=== PATIENT | female | born 1975 | race Caucasian/White ===

== ENCOUNTER 2020-02-15 23:59 | Emergency (ER) | payer BC ==
[~2020-02-15] VITALS: Ht 165.1 cm; Wt 99.8 kg
[~2020-02-15 23:59] MED LIST: AUGMENTIN 875-1 EACH PO; MECLIZINE HCL25 MG PO; METHYLPREDNISOLO4 M1 PO; NORCO 5-325 TA1 EACH PO; ZITHROMAX250 MG PO
== END 2020-02-16 01:19 | disposition home or self-care (01) ==
LOC: ED 23:59
DX: H18.822 Corneal disorder due to contact lens, left eye (principal); E78.5 Hyperlipidemia, unspecified; Z88.8 Allergy status to other drugs, medicaments and biological substances
CPT/HCPCS: 99283

== ENCOUNTER 2020-11-04 20:59 | Emergency (ER) | payer BC ==
[~2020-11-04] VITALS: Ht 165.1 cm; Wt 110.0 kg
--- NOTE | 2020-11-04 22:51 | EKG ---
[facility] [address] [facility] [place], [place] [address] Signed Sinus tachycardia Otherwise normal ECG When compared with ECG of 01-SEP-2017 16:18, No significant change was found Confirmed by TERESO GUNTER MD ([id number]) on 11/04/2020 10:51:28 PM Electronically Signed By: TERESO GUNTER MD 11/04/20 2251 PATIENT NAME: MARYURI HARGROVE BENITO Electrocardiogram DATE OF : 77 PHYSICIAN: TERESO GUNTER MD REPORT #: [id number] REPORT IS CONFIDENTIAL AND NOT TO BE RELEASED WITHOUT AUTHORIZATION
[2020-11-04] MEDS ORDERED: CARDIZEM CD120 MG PO (23:50)
--- NOTE | 2020-11-05 07:49 | EKG ---
[facility] [address] [place] [address] Signed Sinus tachycardia with premature atrial complexes Otherwise normal ECG When compared with ECG of 04-NOV-2020 21:08, (Unconfirmed) premature atrial complexes are now present Confirmed by TERESO GUNTER MD ([id number]) on 11/05/2020 7:49:21 AM Electronically Signed By: TERESO GUNTER MD 11/05/20 0749 PATIENT NAME: MARYURI HARGROVE Electrocardiogram DATE OF : 77 PHYSICIAN: TERESO GUNTER MD REPORT #: [id number] REPORT IS CONFIDENTIAL AND NOT TO BE RELEASED WITHOUT AUTHORIZATION
== END 2020-11-05 00:10 | disposition home or self-care (01) ==
LOC: ED 20:59
DX: I49.9 Cardiac arrhythmia, unspecified (principal); I10 Essential (primary) hypertension; E78.5 Hyperlipidemia, unspecified; Z88.8 Allergy status to other drugs, medicaments and biological substances
CPT/HCPCS: 71045; 80053; 81001; 83735; 84484; 85025; 93005; 93010; 96374; 99284-25; J7030

== ENCOUNTER 2021-02-02 01:27 | Emergency (ER) | payer BC ==
[~2021-02-02] VITALS: Ht 165.1 cm; Wt 110.0 kg
[~2021-02-02 01:27] MED LIST changes: +CARDIZEM CD120 MG PO
--- NOTE | 2021-02-03 07:10 | EKG ---
[facility] [address] [facility] [place], [place] [address] Signed Sinus tachycardia Otherwise normal ECG When compared with ECG of 04-NOV-2020 21:32, premature atrial complexes are no longer present Confirmed by TERESO GUNTER MD ([id number]) on 02/03/2021 7:09:58 AM Electronically Signed By: TERESO GUNTER MD 02/03/21 0710 PATIENT NAME: MARYURI HARGROVE BENITO Electrocardiogram DATE OF : 77 PHYSICIAN: TERESO GUNTER MD REPORT #: [id number] REPORT IS CONFIDENTIAL AND NOT TO BE RELEASED WITHOUT AUTHORIZATION
== END 2021-02-02 03:43 | disposition home or self-care (01) ==
LOC: ED 01:27
DX: R07.9 Chest pain, unspecified (principal); E78.5 Hyperlipidemia, unspecified; Z88.8 Allergy status to other drugs, medicaments and biological substances
CPT/HCPCS: 71045; 80053; 83735; 84484; 85025; 85379; 93005; 93010; 96372; 99285-25; J1650; J7121

== ENCOUNTER 2021-02-10 22:18 | Emergency (ER) | payer BC ==
[~2021-02-10] VITALS: Ht 165.1 cm; Wt 110.0 kg
--- OUTSIDE RECORDS SUMMARY | 2021-02-10 22:26 | XMS ---
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 Liz has no Care Guidelines for this patient. Carrie VISIT COUNT (12 MO.) 4 [facility] TOTAL 4 NOTE: Visits indicate total known visits. ED/C VISIT TRACKING (12 MO.) [facility] COMPLAINT: - SOB,CHEST PAIN 02/02/2021 01:27 [facility] [place] TYPE: Emergency COMPLAINT: - CHEST PAIN DIAGNOSES: - Hyperlipidemia, unspecified - Allergy status to other drugs, medicaments and biological substances - Chest pain, unspecified 11/04/2020 21:00 [facility] [place] TYPE: Emergency COMPLAINT: - IRREGULAR HEART BEAT DIAGNOSES: - Essential (primary) hypertension - Essential (primary) hypertension - Cardiac arrhythmia, unspecified - Cardiac arrhythmia, unspecified - Allergy status to other drugs, medicaments and biological substances - Hyperlipidemia, unspecified 02/16/2020 00:00 [facility] [place] TYPE: Emergency COMPLAINT: - EYE PAIN,RUNNY NOSE DIAGNOSES: - Hyperlipidemia, unspecified - Corneal disorder due to contact lens, left eye - Ocular pain, left eye - Allergy status to other drugs, medicaments and biological substances INPATIENT VISIT TRACKING (12 MO.) No inpatient visits to display in this time frame [email or web address]
[2021-02-10] MEDS ORDERED: HYDROXYZINE HCL25 MG PO (23:01)
[2021-02-10] MEDS ORDERED: DILTIAZEM HCL120 MG PO (23:02)
--- NOTE | 2021-02-11 19:17 | EKG ---
[facility] [address] [facility] [place], [place] [address] Signed Sinus tachycardia Otherwise normal ECG When compared with ECG of 02-FEB-2021 01:36, T wave amplitude has decreased in Anterior leads Confirmed by SEEMA ANGELO DO ([id number]) on 02/11/2021 7:17:30 PM Electronically Signed By: SEEMA ANGELO DO 02/11/217 PATIENT NAME: BEENAMARYURI BENITO Electrocardiogram DATE OF : 77 PHYSICIAN: SEEMA ANGELO DO REPORT #: [id number] REPORT IS CONFIDENTIAL AND NOT TO BE RELEASED WITHOUT AUTHORIZATION
== END 2021-02-11 02:01 | disposition home or self-care (01) ==
LOC: ED 22:18
DX: U07.1 COVID-19 (principal); E78.5 Hyperlipidemia, unspecified; Z88.8 Allergy status to other drugs, medicaments and biological substances; Z79.899 Other long term (current) drug therapy
CPT/HCPCS: 71045; 80053; 83735; 84484; 85025; 99285-25; M0243; Q0244